=== PATIENT | male | born 1955 | race Caucasian/White ===

== ENCOUNTER 2018-08-31 12:06 | Day surgery (SDC) | payer OTHER ==
[~2018-08-31 12:06] MED LIST: Brimonidine 0.2% Ophth Soln 5 ML Bottle EYERT SCH; Cefuroxime 10 MG/ML SYRINGE EYERT SCH; Lidocaine 1% PF 2 ML SDV INJECT SCH; Pilocarpine 4% Ophth Soln 15 ML Bot EYERT SCH
[2018-08-31] MEDS ORDERED: Lidocaine 1% with EPINEPHrine 1:100,000 20 ML MDV ONE (13:25)
[2018-08-31] MEDS: Polymyxin B/Trimethoprim 10 ML Bottle EYERT SCH ×3 (13:42→15:26)
[2018-08-31] MEDS: Brimonidine 0.2% Ophth Soln 15 ML Bottle EYERT SCH ×3 (13:46→14:40)
[2018-08-31] MEDS: Phenylephrine 2.5% Ophth Soln 2 ML Bot EYERT SCH ×5 (13:50→15:05)
[2018-08-31] MEDS: Tropicamide 1% Ophth Soln 15 ML Bottle EYERT SCH ×4 (13:54→14:30)
--- NOTE | 2018-08-31 13:54 | PCM.PREANE ---
Preanesthetic Assessment - Anesthesia/Transfusion/Family Hx Anesthesia History: Prior Anesthesia Without Reaction Family History of Anesthesia Reaction: No Transfusion History: No Prior Transfusion(s) - Review of Systems General: No Symptoms Pulmonary: Other (asthma, used inhaler 2-3 times per week) Cardiovascular: Other (HTN, denies any chest pain, increased cholesterol) Gastrointestinal: No Symptoms Neurological: No Symptoms Other: Reports: Diabetes, Anxiety - Physical Assessment NPO Status Date: 08/30/18 NPO Status Time: 22:00 Pulse: 81 O2 Sat by Pulse Oximetry: 96 Respiratory Rate: 16 Blood Pressure: 184/95 Weight: 122.47 kg ASA Class: 2 Mental Status: Alert & Oriented x3 Airway Class: Mallampati = 2 Dentition: Reports: Normal Dentition, Partial (upper) Thyro-Mental Finger Breadths: 3 Mouth Opening Finger Breadths: 3 ROM/Head Extension: Full Lungs: Clear to Auscultation, Normal Respiratory Effort Cardiovascular: Regular Rate, Regular Rhythm - Allergies Allergies/Adverse Reactions: Allergies Allergy/AdvReac Type Severity Reaction Status Date / Time lisinopril Allergy Cannot Verified 08/31/18 07:31 Remember - Blood Blood Available: No Product(s) Available: None - Anesthesia Plan Pre-Op Medication Ordered: None - Acknowledgements Anesthesia Type Planned: MAC Pt an Appropriate Candidate for the Planned Anesthesia: Yes Alternatives and Risks of Anesthesia Discussed w Pt/Guardian: Yes Pt/Guardian Understands and Agrees with Anesthesia Plan: Yes PreAnesthesia Questionnaire - CURRENT (IN HOUSE) MEDS Current Meds: Current Medications Brimonidine Tartrate (Brimonidine Tartrate 0.2% Ophth Soln) 0 ml EYERT ASDIRECTED ROSY Stop: 08/31/18 16:00 Last Admin: 08/31/18 13:46 Dose: 1 drop Cefuroxime Sodium (Zinacef) 0 mg EYERT ASDIRECTED ROSY Stop: 08/31/18 18:00 Lidocaine HCl (Xylocaine-Mpf 1%) 10 ml INJECT ASDIRECTED ROSY Stop: 08/31/18 16:00 Phenylephrine HCl (Pedro-Synephrine 2.5% Ophth Soln) 0 ml EYERT ASDIRECTED ROSY Stop: 08/31/18 16:00 Pilocarpine HCl (Pilocar 4% Ophth Soln) 0 ml EYERT ASDIRECTED ROSY Stop: 08/31/18 16:00 Polymyxin/Trimethoprim Sulfate (Polytrim Ophth Soln) 0 ml EYERT ASDIRECTED ROSY Stop: 08/31/18 16:00 Last Admin: 08/31/18 13:42 Dose: 1 drop Tetracaine HCl (Tetracaine 0.5% Steri-Unit Margo) 0 ml EYERT ASDIRECTED ROSY Stop: 08/31/18 16:00 Tropicamide (Mydriacyl 1% Ophth Soln) 0 ml EYERT ASDIRECTED ROSY Stop: 08/31/18 16:00 Discontinued Medications Brimonidine Tartrate (Alphagan 0.2% Ophth Soln) 0 ml EYERT ASDIRECTED ROSY Stop: 08/31/18 16:00 Lidocaine/Epinephrine (Xylocaine 1% With Epinephrine 1:100,000) Confirm Administered Dose 20 ml .ROUTE .STK-MED ONE Stop: 08/31/18 13:26
[2018-08-31] MEDS: Tetracaine HCl/PF 0.5% 4 ML Bottle EYERT SCH ×4 (14:34→15:11)
[2018-08-31] MEDS ORDERED: Erythromycin Base 0.5% Ophth Oint 1 GM Tube EYEBOTH ONE (15:27)
--- NOTE | 2018-08-31 16:55 | PCM48HPAN ---
Post Anesthesia Note - EVALUATION WITHIN 48HRS OF ANESTHETIC Vital Signs in Normal Range: Yes Patient Participated in Evaluation: Yes Respiratory Function Stable: Yes Airway Patent: Yes Cardiovascular Function Stable: Yes Hydration Status Stable: Yes Pain Control Satisfactory: Yes Nausea and Vomiting Control Satisfactory: Yes Mental Status Recovered: Yes
== END 2018-08-31 15:47 | disposition home or self-care (01) ==
LOC: JD.SDS 12:06
PROVIDERS: ATTEND Ophthalmology
DX: H25.813 Combined forms of age-related cataract, bilateral (principal); D23.122 Other benign neoplasm of skin of left lower eyelid, including canthus; D23.112 Other benign neoplasm of skin of right lower eyelid, including canthus; E11.39 Type 2 diabetes mellitus with other diabetic ophthalmic complication; H40.003 Preglaucoma, unspecified, bilateral; H42 Glaucoma in diseases classified elsewhere; H02.834 Dermatochalasis of left upper eyelid; H02.831 Dermatochalasis of right upper eyelid; F41.9 Anxiety disorder, unspecified; M19.90 Unspecified osteoarthritis, unspecified site; J45.909 Unspecified asthma, uncomplicated; E78.00 Pure hypercholesterolemia, unspecified; I10 Essential (primary) hypertension; Z88.8 Allergy status to other drugs, medicaments and biological substances; Z79.51 Long term (current) use of inhaled steroids; Z79.82 Long term (current) use of aspirin; Z79.899 Other long term (current) drug therapy
CPT/HCPCS: 66984; J0697